=== PATIENT | male | born 1995 | race Caucasian/White ===

== ENCOUNTER 2018-02-20 23:09 | Emergency (ER) | payer BC ==
[~2018-02-20] VITALS: Ht 182.9 cm; Wt 122.7 kg
[~2018-02-20 23:09] MED LIST: ALBUTEROL SULFAT3 M3 IH; ALLEGRA ALLERG180 MG PO; SINGULAIR 110 MG/TAB PO; TENORMIN 2525 MG/TAB PO; ZOFRAN 4MG T4 MG/TAB PO; ZOFRAN ODT4 MG PO; ZOLOFT 50MG50 MG PO
[2018-02-20 23:15] VITALS: TEMP 98
[2018-02-21] MEDS ORDERED: NORCO 325 MG-51 TAB PO ×2 (01:54→16:51)
[2018-02-21] MEDS ORDERED: PHENERGAN 25 TA25 MG PO (01:54)
[2018-02-21 02:23] VITALS: BP 133/72; PULSE 77
[2018-02-21] MEDS ORDERED: ZOFRAN ODT4 MG PO (16:51)
== END 2018-02-21 02:25 | disposition home or self-care (01) ==
LOC: COL.ER 23:09
DX: R10.32 Left lower quadrant pain (principal); R11.2 Nausea with vomiting, unspecified; R19.7 Diarrhea, unspecified; Z90.89 Acquired absence of other organs
CPT/HCPCS: J2270; J2550; Q9967

== ENCOUNTER 2018-02-21 13:40 | Emergency (ER) | payer BC ==
[~2018-02-21] VITALS: Ht 182.9 cm; Wt 125.9 kg
[~2018-02-21 13:40] MED LIST changes: +NORCO 325 MG-51 TAB PO; +PHENERGAN 25 TA25 MG PO
[2018-02-21 13:42] VITALS: TEMP 99.4
[2018-02-21 14:24] LABS: BASO % 0.2 % (0.0-2.0); EOS % 0.1 % (0-4.0); GRAN # 10.2 (1.4-6.5); GRAN % 83.7 % (42.2-75.2); HEMOGLOBIN 12.6 g/dl (13.5-18.0); LYMPH % 8.3 % (20.0-51.0); MEAN CELL VOLUME 86 fl (80.0-100.0); MEAN CORPUSCULAR HEMOGLOBIN 29 pg (27.0-31.0); MEAN CORPUSCULAR HGB CONC 34 g/dl (33.0-37.0); MEAN PLATELET VOLUME 9.1 fl (7.4-10.4); MONO # 0.9 (0.1-0.6); MONO % 7.3 % (1.7-9.3); PLATELET COUNT 293 K/mm3 (130-400); RED BLOOD COUNT 4.32 M/mm3 (4.20-5.60); REDCELL DISTRIBUTION WIDTH-CV 12.4 % (11.5-14.5)
[2018-02-21 14:35] LABS: ALBUMIN 4.1 gm/dL (3.5-5.0); BILIRUBIN,TOTAL 0.5 mg/dL (0.0-1.0); CALCIUM 9.2 mg/dL (8.4-10.2); CREATININE, serum 2.12 mg/dL (0.66-1.25); POTASSIUM 3.8 mmol/L (3.4-5.0); TOTAL PROTEIN 8.4 gm/dL (6.4-8.2)
[2018-02-21] MEDS ORDERED: ZOFRAN ODT4 MG PO (16:51)
[2018-02-21] MEDS ORDERED: NORCO 325 MG-51 TAB PO (16:51)
[2018-02-21 17:16] VITALS: BP 130/79; PULSE 65
== END 2018-02-21 17:18 | disposition home or self-care (01) ==
LOC: COL.ER 13:40
PROVIDERS: Physician Assistant
DX: R10.12 Left upper quadrant pain (principal); R11.2 Nausea with vomiting, unspecified
CPT/HCPCS: C9113; J2405; J7030